=== PATIENT | male | born 1970 | race Caucasian/White ===

== ENCOUNTER 2017-06-07 19:46 | Emergency (ER) | payer MEDICAID ==
[2017-06-07] MEDS ORDERED: Azithromycin 250 MG Tab PO ONE (19:47)
[2017-06-07 19:49] VITALS: BP 154/91
[2017-06-07] MEDS ORDERED: Take Home: Azithromycin 250 MG, 2 Tab Pack PO ONE (20:10)
--- NOTE | 2017-06-07 20:11 | EDM.PDOC ---
ED HPI GENERAL MEDICAL PROBLEM - General Chief Complaint: Respiratory Problem Stated Complaint: COUGH Time Seen by Provider: 06/07/17 20:03 Source of Information: Reports: Patient History Limitations: Reports: No Limitations - History of Present Illness INITIAL COMMENTS - FREE TEXT/NARRATIVE: Has been coughing for the last 3 weeks. Coughing up thick green, yellow mucus. No fever but has had some chills. Sore throat at times. No diarrhea or vomiting. Onset: Gradual Duration: Week(s): (3) Location: Reports: Head, Chest Severity: Moderate Associated Symptoms: Reports: Cough, cough w sputum. Denies: Nausea/Vomiting, Shortness of Breath Throat Pain Score (Numeric/FACES): 8 - Related Data Allergies Allergy/AdvReac Type Severity Reaction Status Date / Time Fish Containing Products Allergy Hives Verified 06/07/17 19:49 Penicillins Allergy Hives Verified 06/07/17 19:49 spinach Allergy Hives Verified 06/07/17 19:49 Home Meds: Home Meds Aspirin [Adult Low Dose Aspirin EC] 81 mg PO DAILY 10/08/16 [History] metFORMIN [Glucophage XR] 1,000 mg PO DAILY 10/08/16 [History] Past Medical History Cardiovascular History: Reports: Hypertension Endocrine/Metabolic History: Reports: Diabetes, Type II Oncologic (Cancer) History: Reports: Bladder Social & Family History - Family History Family Medical History: Noncontributory - Tobacco Use Smoking Status *Q: Never Smoker - Caffeine Use Caffeine Use: Reports: Coffee - Alcohol Use Days Per Week of Alcohol Use: 2 Number of Drinks Per Day: 5 Total Drinks Per Week: 10 - Recreational Drug Use Recreational Drug Use: No ED ROS GENERAL - Review of Systems Review Of Systems: See Below Constitutional: Reports: No Symptoms HEENT: Reports: Throat Pain Respiratory: Reports: Cough, Sputum. Denies: Shortness of Breath Cardiovascular: Denies: Chest Pain, Edema GI/Abdominal: Reports: No Symptoms Musculoskeletal: Reports: No Symptoms Skin: Denies: Rash ED EXAM, GENERAL - Physical Exam Exam: See Below Exam Limited By: No Limitations General Appearance: Alert, Mild Distress Ears: Normal External Exam, Normal Canal, Normal TMs Nose: Normal Inspection Throat/Mouth: Normal Inspection, Other (posterior pharynx is red and irritated.) Head: Atraumatic, Normocephalic Neck: Normal Inspection, Supple, Non-Tender, Full Range of Motion Respiratory/Chest: No Respiratory Distress, Lungs Clear Cardiovascular: Normal Peripheral Pulses, Regular Rate, Rhythm, No Murmur GI/Abdominal: Normal Bowel Sounds, Soft, No Organomegaly Extremities: No Pedal Edema Neurological: Alert, Oriented Psychiatric: Normal Affect Skin Exam: Warm, Dry, Intact Course - Vital Signs Last Recorded V/S: Last Vital Signs Temp 98.2 F 06/07/17 19:46 Pulse 112 H 06/07/17 19:46 Resp 20 06/07/17 19:46 BP 154/91 H 06/07/17 19:46 Pulse Ox 97 06/07/17 19:46 Departure - Departure Time of Disposition: 20:14 Disposition: Home, Self-Care 01 Condition: Good (si) Clinical Impression: Sinusitis Qualifiers: Sinusitis location: frontal Chronicity: acute Recurrence: non-recurrent Qualified Code(s): J01.10 - Acute frontal sinusitis, unspecified - Discharge Information Referrals: PCP,None [Primary Care Provider] - Additional Instructions: zithromax- take your first 2 pills tonight at the same time. starting tomorrow take 1 pill daily until gone. You will need to have these filled at the drug store tomorrow, Decongestants to help with the drainage Push fluids as much as possible Recheck in the clinic if not improving - Problem List & Annotations (1) Sinusitis SNOMED Code(s): 11502551 Code(s): J32.9 - CHRONIC SINUSITIS, UNSPECIFIED Status: Acute Priority: High Current Visit: Yes Qualifiers: Sinusitis location: frontal Chronicity: acute Recurrence: non-recurrent Qualified Code(s): J01.10 - Acute frontal sinusitis, unspecified - Problem List Review Problem List Initiated/Reviewed/Updated: Yes
== END 2017-06-07 20:26 | disposition home or self-care (01) ==
LOC: CC.ED 19:46
DX: J01.10 Acute frontal sinusitis, unspecified (principal); I10 Essential (primary) hypertension; E11.9 Type 2 diabetes mellitus without complications; Z91.013 Allergy to seafood; Z91.018 Allergy to other foods; Z88.0 Allergy status to penicillin; Z79.82 Long term (current) use of aspirin; Z79.899 Other long term (current) drug therapy
CPT/HCPCS: 99283; A9270